=== PATIENT | male | born 1985 | race Two or more races ===

== ENCOUNTER 2020-01-08 00:19 | Inpatient (IN) | payer OTHER ==
[~2020-01-08] VITALS: Ht 177.8 cm; Wt 94.0 kg
[2020-01-08 00:20] VITALS: BP 121/77
--- NOTE | 2020-01-08 00:29 | Emergency Room Report ---
History of Present Illness General Chief Complaint: Pain Source: Patient Present Illness HPI This is a 35-year-old male with a history of lumbar radiculopathy secondary to herniated disc at the L5-S1 distribution. He had recent spinal surgery done today. He was [facility] to [facility]. He presents with chief complaint of back pain at the surgical site. Pain going down both thighs. No relief with Percocet at the [facility]. He was sent here for admission for pain control. Patient denies any fever chills but no nausea no vomiting. Unable to move because of the pain. Pain is 10 out of 10. Pain is sharp. Localized to the lower lumbar area from surgical site. No bleeding. Any movement makes it worse. Laying still made it better. Allergies: Coded Allergies: No Known Allergies (Unverified , 01/08/20) COVID-19 Screening Contact w/high risk pt: No Experienced COVID-19 symptoms?: No COVID-19 Testing performed CAPTAIN ASSISTANT: No Patient History Past Medical History: see triage record, old chart reviewed Past Surgical History: other Pertinent Family History: none Social History: Denies: smoking Immunizations: other Reviewed Nursing Documentation: PMH: Agreed; PSxH: Agreed Review of Systems Eye: Denies: eye pain, blurred vision ENT: Denies: ear pain, nose congestion, throat swelling Respiratory: Denies: cough, shortness of breath Cardiovascular: Denies: chest pain, palpitations Gastrointestinal: Denies: abdominal pain, diarrhea, nausea, vomiting Musculoskeletal: Reports: back pain; Denies: joint pain Skin: Denies: rash Neurological: Denies: headache, numbness Endocrine: Denies: increased thirst, increased urine Hematologic/Lymphatic: Denies: easy bruising All Other Systems: negative except mentioned in HPI Physical Exam Vital Signs Date Time Temp Pulse Resp B/P (MAP) Pulse Ox O2 Delivery O2 Flow Rate FiO2 01/08/20 00:20 98.2 100 22 118/73 (88) 99 Room Air Vitals normal Sp02 EP Interpretation: reviewed, normal General Appearance: well appearing, no apparent distress, alert Head: normocephalic, atraumatic Eyes: bilateral eye PERRL, bilateral eye EOMI ENT: hearing grossly normal, normal pharynx Neck: full range of motion, supple, no meningismus Respiratory: chest non-tender, lungs clear, normal breath sounds Cardiovascular #1: regular rate, rhythm, no murmur Gastrointestinal: normal bowel sounds, non tender, no mass, no organomegaly, no bruit, non-distended Musculoskeletal: normal range of motion, other - Dressing over surgical site. No active bleeding. Psychiatric: mood/affect normal Medical Decision Making Diagnostic Impression: Primary Impression: Post-operative pain Additional Impression: Leukocytosis Qualified Codes: D72.829 - Elevated white blood cell count, unspecified ER Course Patient with postoperative pain. Better after IV pain medication. Will admit for pain control. He may need a BARLEY STEEPER pump. I have discussed this case with Dr. Parrish prior to patient's arrival. CT/MRI/US Diagnostic Results CT/MRI/US Diagnostic Results : Imaging Test Ordered: CT lumbar spine Impression Read by radiologist. IMPRESSION: Posterior fusion of L5-S1. With repeated hardware appears intact and there is near-anatomic alignment. Gas in the spinal canal and posterior paraspinous soft tissues is likely postsurgical. No loculated fluid collection. Last Vital Signs Date Time Temp Pulse Resp B/P (MAP) Pulse Ox O2 Delivery O2 Flow Rate FiO2 01/08/20 00:20 98.2 100 22 118/73 (88) 99 Room Air Status: improved Disposition: ADMITTED INPATIENT Condition: Serious Matteo Jones MD Jan 08, 2020 00:29
[2020-01-08] MEDS ORDERED: Ketorolac 30mg Inj IV ONE (00:30)
[2020-01-08 00:55] LABS: HEMATOCRIT 46.7 % (42.0-52.0); HEMOGLOBIN 16.7 G/DL (14.2-18.0); MEAN CORPUSCULAR VOLUME 86 FL (80-99); PLATELET COUNT 153 K/UL (150-450); RED BLOOD COUNT 5.42 M/UL (4.70-6.10); RED CELL DISTRIBUTION WIDTH 11.6 % (11.6-14.8)
[2020-01-08 00:56] LABS: WHITE BLOOD COUNT 24.5 K/UL (4.8-10.8)
[2020-01-08 01:07] LABS: ANION GAP 17 mmol/L (5-15); BLOOD UREA NITROGEN 17 mg/dL (7-18); CARBON DIOXIDE 19 MMOL/L (21-32); CHLORIDE 101 MMOL/L (98-107); CREATININE 1.3 MG/DL (0.55-1.30); SODIUM 137 MMOL/L (136-145)
[2020-01-08 01:18] LABS: APPEARANCE,URINE CLEAR; COLOR,URINE PALE YELLOW
[2020-01-08 01:19] LABS: BILIRUBIN, URINE NEGATIVE (NEGATIVE); KETONES,URINE NEGATIVE (NEGATIVE); LEUKOCYTE ESTERASE ,URINE NEGATIVE (NEGATIVE); NITRITE,URINE NEGATIVE (NEGATIVE); PROTEIN,URINE 1+ (NEGATIVE); UROBILINOGEN,URINE NORMAL MG/DL (0.0-1.0)
[2020-01-08 01:21] LABS: GLUCOSE, URINE (UA) 2+ (NEGATIVE)
[2020-01-08] MEDS ORDERED: PERCOCET 10-321 EACH ORAL (01:33)
[2020-01-08 02:30] VITALS: BP 133/81
--- NOTE | 2020-01-08 02:33 | Diagnostic Imaging Report ---
EXAM: CT Lumbar Spine Without Intravenous Contrast CLINICAL HISTORY: This is a 35-year-old male with a history of lumbar radiculopathy secondary to herniated disc at the L5-S1 distribution. He had recent spinal surgery done today. He was discharged to group home. He presents with chief complaint of back pain at the surgical site. Pain going down both thighs. No relief with Percocet at the group home. He was sent here for admission for pain control. Patient denies any fever chills but no nausea no vomiting. Unable to move because of the pain. Pain is 10 out of 10. Pain is sharp. Localized to the lower lumbar area from surgical site. No bleeding. Any movement makes it worse. Laying still made it better. TECHNIQUE: Axial computed tomography images of the lumbar spine without intravenous contrast. CTDI is 13.5 mGy and DLP is 593.60 mGy-cm. One or more of the following dose reduction techniques were used: automated exposure control, adjustment of the mA and/or kV according to patient size, use of iterative reconstruction technique. COMPARISON: No relevant prior studies available. FINDINGS: Artifacts: Orthopedic hardware. Limitations: Lack of intravenous contrast. Vertebrae: No acute fracture. Sacrum/coccyx: Trace gas in the lower lumbar and upper sacral spinal canal. Discs/spinal canal/neural foramina: Posterior fusion of L5-S1 with pedicle screws and fusion rods. Orthopedic hardware appears intact and there is near-anatomic alignment. Soft tissues: Posterior paraspinous soft tissue gas and edema. No loculated fluid collection. Liver: Visualized liver is hypodense, suggesting steatosis. IMPRESSION: Posterior fusion of L5-S1. With repeated hardware appears intact and there is near-anatomic alignment. Gas in the spinal canal and posterior paraspinous soft tissues is likely postsurgical. No loculated fluid collection.
[2020-01-08 05:44] LABS: HEMATOCRIT 46.4 % (42.0-52.0); HEMOGLOBIN 15.9 G/DL (14.2-18.0); MEAN CORPUSCULAR VOLUME 89 FL (80-99); PLATELET COUNT 151 K/UL (150-450); RED BLOOD COUNT 5.24 M/UL (4.70-6.10); RED CELL DISTRIBUTION WIDTH 11.8 % (11.6-14.8); WHITE BLOOD COUNT 21.8 K/UL (4.8-10.8)
[2020-01-08] MEDS: Docusate 100mg cap ORAL SCH ×2 (09:00→17:59)
--- NOTE | 2020-01-08 09:33 | General Progress Note ---
Progress Note Progress Note Neurourgery POD#1 S/ pain better controlled no radiation of pain in the legs. Ambulated with PT. O/ Last 24 Hour Vital Signs Date Time Temp Pulse Resp B/P (MAP) Pulse Ox O2 Delivery O2 Flow Rate FiO2 01/08/20 08:00 98.4 89 19 96 01/08/20 06:02 97.3 01/08/20 04:00 97.3 72 18 95 01/08/20 03:07 Room Air 01/08/20 02:30 98.6 63 20 133/81 99 Room Air 01/08/20 02:30 98.6 63 20 133/81 99 Room Air 01/08/20 01:47 98.3 01/08/20 01:06 98.3 01/08/20 01:05 98.3 01/08/20 00:20 98.2 100 22 118/73 (88) 99 Room Air 01/08/20 00:20 98.4 72 20 121/77 99 Room Air Alert and oriented Moves all extremities lower extremities 5/5 sensory exam normal Dressing completely dry and intact Imaging I reviewed the post op CT personally. psot surgical changes at L5-S1 level with bilateral pedicle screws. Normal alignment. Hardware is in good position. No evidence of fluid collection or hematoma. labs Laboratory Tests Test 01/08/20 00:15 01/08/20 01:00 01/08/20 04:45 White Blood Count 24.5 K/UL (4.8-10.8) *H 21.8 K/UL (4.8-10.8) H Red Blood Count 5.42 M/UL (4.70-6.10) 5.24 M/UL (4.70-6.10) Hemoglobin 16.7 G/DL (14.2-18.0) 15.9 G/DL (14.2-18.0) Hematocrit 46.7 % (42.0-52.0) 46.4 % (42.0-52.0) Mean Corpuscular Volume 86 FL (80-99) 89 FL (80-99) Mean Corpuscular Hemoglobin 30.8 PG (27.0-31.0) 30.3 PG (27.0-31.0) Mean Corpuscular Hemoglobin Concent 35.7 G/DL (32.0-36.0) 34.2 G/DL (32.0-36.0) Red Cell Distribution Width 11.6 % (11.6-14.8) 11.8 % (11.6-14.8) Platelet Count 153 K/UL (150-450) 151 K/UL (150-450) Mean Platelet Volume 13.3 FL (6.5-10.1) H 12.3 FL (6.5-10.1) H Neutrophils (%) (Auto) % (45.0-75.0) % (45.0-75.0) Lymphocytes (%) (Auto) % (20.0-45.0) % (20.0-45.0) Monocytes (%) (Auto) % (1.0-10.0) % (1.0-10.0) Eosinophils (%) (Auto) % (0.0-3.0) % (0.0-3.0) Basophils (%) (Auto) % (0.0-2.0) % (0.0-2.0) Differential Total Cells Counted 100 100 Neutrophils % (Manual) 86 % (45-75) H 84 % (45-75) H Lymphocytes % (Manual) 9 % (20-45) L 10 % (20-45) L Monocytes % (Manual) 5 % (1-10) 6 % (1-10) Eosinophils % (Manual) 0 % (0-3) 0 % (0-3) Basophils % (Manual) 0 % (0-2) 0 % (0-2) Band Neutrophils 0 % (0-8) 0 % (0-8) Platelet Estimate Adequate Adequate Platelet Morphology Normal Normal Sodium Level 137 MMOL/L (136-145) Potassium Level 4.0 MMOL/L (3.5-5.1) Chloride Level 101 MMOL/L (98-107) Carbon Dioxide Level 19 MMOL/L (21-32) L Anion Gap 17 mmol/L (5-15) H Blood Urea Nitrogen 17 mg/dL (7-18) Creatinine 1.3 MG/DL (0.55-1.30) Estimat Glomerular Filtration Rate > 60 mL/min (>60) Glucose Level 157 MG/DL (74-106) H Calcium Level 9.0 MG/DL (8.5-10.1) Urine Color Pale yellow Urine Appearance Clear Urine pH 6.0 (4.5-8.0) Urine Specific Crockett 1.015 (1.005-1.035) Urine Protein 1+ (NEGATIVE) H Urine Glucose (UA) 2+ (NEGATIVE) H Urine Ketones Negative (NEGATIVE) Urine Blood 4+ (NEGATIVE) H Urine Nitrite Negative (NEGATIVE) Urine Bilirubin Negative (NEGATIVE) Urine Urobilinogen Normal MG/DL (0.0-1.0) Urine Leukocyte Esterase Negative (NEGATIVE) Urine RBC 40-60 /HPF (0 - 0) H Urine WBC 0-2 /HPF (0 - 0) Urine Squamous Epithelial Cells None /LPF (NONE/OCC) Urine Bacteria None /HPF (NONE) Red Blood Cell Morphology Normal Plan/ pain control ICE pack to incision site Soma Ambulate with lumbar brace Care plan discussed with nursing and Dr. Parrish. Mariel Espana MD Jan 08, 2020 09:33
[2020-01-08 16:02] VITALS: BP 114/60
[2020-01-08] MEDS: oxyCONTIN 10mg tab ORAL SCH (18:07)
[2020-01-08] MEDS: HYDROmorphone 1mg/ml Carpuject IVP PRN ×2 (19:39→22:44)
[2020-01-08 20:00] VITALS: BP 112/63
[2020-01-08] MEDS: Milk of Magnesia 30ml Ud ORAL PRN (20:55)
--- NOTE | 2020-01-08 22:59 | History and Physical Report ---
DATE OF ADMISSION: 01/08/2020 HISTORY OF PRESENT ILLNESS: Patient is well known to me. Patient is a 35-year-old male who is status post posterior lumbar decompression and fusion. Patient was sent to a rehab center. Subsequently had significant pain. he was on percocet for him, subsequently transferred to the ER at [facility], admitted to [facility]. Patient was transferred to the ER around 2 to 3 o'clock in the morning. He was subsequently transferred to the floor. PAST MEDICAL HISTORY: None. PAST SURGICAL HISTORY: Includes microdiskectomy and then he had lumbar fusion. MEDICATIONS: He was on ibuprofen until a couple of days prior to surgery, but has been held. ALLERGIES: No known drug allergies. PHYSICAL EXAMINATION: VITAL SIGNS: Vital signs were obtained on the patient and were reviewed. HEENT: Normocephalic and atraumatic. Extraocular muscles intact. HEART: S1 and S2. LUNGS: Clear. ABDOMEN: Soft. SKIN: Wound has bandage and there is no drainage. LABORATORY DATA: Obtained which shows white blood cell count 24.5. Hemoglobin 16.7 and platelets 153. Subsequent to that, this morning, the white blood cell count was reviewed. Slightly lower to 21.8. Patient had no fever. BMP is otherwise unremarkable. UA had some glucose and RBC. IMPRESSION: Status post spinal fusion. Postoperative pain. Stress leukocytosis. The following will be done. Monitor patient off antibiotics. Deep vein thrombosis prophylaxis with sequential compression stockings. PT/OT to evaluate this patient. Pain control with Dilaudid and Percocet intermittently. Consideration of adding a muscle relaxant. Spine to see the patient and case was discussed with Spine. Juan J Parrish M.D. DR: CHANG JOB#: [id number] CC: Mariel Espana M.D.; Fax#: [phone] [facility]
[2020-01-09] VITALS: BP 115/71
[2020-01-09] MEDS: oxyCONTIN 10mg tab ORAL SCH ×4 (01:14→22:32)
[2020-01-09] MEDS: HYDROmorphone 1mg/ml Carpuject IVP PRN ×3 (02:33→08:47)
[2020-01-09 04:00] VITALS: BP 118/70
[2020-01-09 05:39] LABS: BASOPHILS % (AUTO) 0.5 % (0.0-2.0); HEMATOCRIT 46.5 % (42.0-52.0); HEMOGLOBIN 15.7 G/DL (14.2-18.0); LYMPHOCYTES % (AUTO) 15.9 % (20.0-45.0); MEAN CORPUSCULAR VOLUME 89 FL (80-99); MONOCYTES % (AUTO) 10.1 % (1.0-10.0); NEUTROPHILS % (AUTO) 73.5 % (45.0-75.0); PLATELET COUNT 128 K/UL (150-450); RED BLOOD COUNT 5.21 M/UL (4.70-6.10); RED CELL DISTRIBUTION WIDTH 12.1 % (11.6-14.8); WHITE BLOOD COUNT 17.4 K/UL (4.8-10.8)
[2020-01-09 08:00] VITALS: BP 118/72
[2020-01-09] MEDS: Docusate 100mg cap ORAL SCH ×2 (08:47→17:04)
--- NOTE | 2020-01-09 09:08 | General Progress Note ---
Assessment/Plan Status Narrative s/p lumbar spien fusion stress leukocytosis WBC is coming down had decadron before surgery Assessment/Plan: Pt Ot dvt prophyalxis paincontrol dc planning will dc ivf give mom Subjective Date patient seen: Jan 09, 2020 Time patient seen: 09:06 Allergies: Coded Allergies: No Known Allergies (Unverified , 01/08/20) Subjective has pain no bm no feverno chills Objective Last 24 Hour Vital Signs Date Time Temp Pulse Resp B/P (MAP) Pulse Ox O2 Delivery O2 Flow Rate FiO2 01/09/20 08:00 98.8 105 18 118/72 (87) 95 01/09/20 04:00 99.5 104 16 118/70 (86) 95 01/09/20 00:00 99.5 110 16 115/71 (86) 96 01/08/20 21:00 Room Air 01/08/20 20:55 100 16 96 01/08/20 20:00 99.0 117 16 112/63 (79) 95 01/08/20 18:37 97.7 01/08/20 16:02 97.7 98 20 114/60 (78) 95 01/08/20 13:27 98.1 01/08/20 12:00 98.1 77 21 96 Intake and Output 01/08/20 01/09/20 19:00 07:00 Intake Total 1090 ml 1100 ml Output Total 1200 ml 1650 ml Balance -110 ml -550 ml Intake Oral 1090 ml 500 ml IV Total 600 ml Output Urine Total 1200 ml 1650 ml # Voids 4 5 Laboratory Tests 01/09/20 04:45: White Blood Count 17.4H, Red Blood Count 5.21, Hemoglobin 15.7, Hematocrit 46.5 , Mean Corpuscular Volume 89, Mean Corpuscular Hemoglobin 30.1, Mean Corpuscular Hemoglobin Concent 33.8, Red Cell Distribution Width 12.1, Platelet Count 128L, Mean Platelet Volume 12.4H, Neutrophils (%) (Auto) 73.5, Lymphocytes (%) (Auto) 15.9L, Monocytes (%) (Auto) 10.1H, Eosinophils (%) (Auto ) 0.0, Basophils (%) (Auto) 0.5 Height (Feet): 5 Height (Inches): 10.00 Weight (Pounds): 207 General Appearance: WD/WN Cardiovascular: normal rate, regular rhythm, no JVD Respiratory/Chest: lungs clear Abdomen: soft Juan J Parrish MD Jan 09, 2020 09:08
--- NOTE | 2020-01-09 09:16 | General Progress Note ---
Progress Note Progress Note Neurosurgery S Incisional pain no radiating pain. Ambulated this passing gas. no BM O vs: Last 24 Hour Vital Signs Date Time Temp Pulse Resp B/P (MAP) Pulse Ox O2 Delivery O2 Flow Rate FiO2 01/09/20 08:00 98.8 105 18 118/72 (87) 95 01/09/20 04:00 99.5 104 16 118/70 (86) 95 01/09/20 00:00 99.5 110 16 115/71 (86) 96 01/08/20 21:00 Room Air 01/08/20 20:55 100 16 96 01/08/20 20:00 99.0 117 16 112/63 (79) 95 01/08/20 18:37 97.7 01/08/20 16:02 97.7 98 20 114/60 (78) 95 01/08/20 13:27 98.1 01/08/20 12:00 98.1 77 21 96 Alert and orented Moves all extremities well Normal sensation Incision dressing completely dry and intact Laboratory Tests Test 01/09/20 04:45 White Blood Count 17.4 K/UL (4.8-10.8) H Red Blood Count 5.21 M/UL (4.70-6.10) Hemoglobin 15.7 G/DL (14.2-18.0) Hematocrit 46.5 % (42.0-52.0) Mean Corpuscular Volume 89 FL (80-99) Mean Corpuscular Hemoglobin 30.1 PG (27.0-31.0) Mean Corpuscular Hemoglobin Concent 33.8 G/DL (32.0-36.0) Red Cell Distribution Width 12.1 % (11.6-14.8) Platelet Count 128 K/UL (150-450) L Mean Platelet Volume 12.4 FL (6.5-10.1) H Neutrophils (%) (Auto) 73.5 % (45.0-75.0) Lymphocytes (%) (Auto) 15.9 % (20.0-45.0) L Monocytes (%) (Auto) 10.1 % (1.0-10.0) H Eosinophils (%) (Auto) 0.0 % (0.0-3.0) Basophils (%) (Auto) 0.5 % (0.0-2.0) sp lumbar fusion incisional pain switch to OxyContin 30 Q8 and Percocet 10 for breakthrough pain Bowel care PT Lumbar brace at bed side. Mariel Espana MD Jan 09, 2020 09:16
[2020-01-09] MEDS ORDERED: oxyCONTIN 10mg tab ORAL SCH (10:00)
[2020-01-09] MEDS ORDERED: Milk of Magnesia 30ml Ud ORAL SCH (10:00)
[2020-01-09 12:00] VITALS: BP 123/76
[2020-01-09] MEDS ORDERED: IBUPROFEN600 M1 ORAL (13:48)
[2020-01-09] MEDS: Metamucil Pkt ORAL SCH ×2 (13:57→17:04)
[2020-01-09] MEDS ORDERED: oxyCONTIN 20mg tab ORAL SCH (14:00)
[2020-01-09 16:00] VITALS: BP 108/68
[2020-01-09 20:00] VITALS: BP 108/67
[2020-01-09] MEDS: Milk of Magnesia 30ml Ud ORAL PRN (20:09)
[2020-01-10] VITALS: BP 117/67
[2020-01-10 03:31] VITALS: BP 116/63
[2020-01-10] MEDS: oxyCONTIN 10mg tab ORAL SCH ×2 (06:12→13:53)
[2020-01-10 07:07] LABS: BASOPHILS % (AUTO) 0.8 % (0.0-2.0); EOSINOPHILS % (AUTO) 0.1 % (0.0-3.0); HEMATOCRIT 45.5 % (42.0-52.0); HEMOGLOBIN 15.4 G/DL (14.2-18.0); LYMPHOCYTES % (AUTO) 10.7 % (20.0-45.0); MEAN CORPUSCULAR VOLUME 88 FL (80-99); MONOCYTES % (AUTO) 7.9 % (1.0-10.0); NEUTROPHILS % (AUTO) 80.4 % (45.0-75.0); PLATELET COUNT 131 K/UL (150-450); RED BLOOD COUNT 5.16 M/UL (4.70-6.10); RED CELL DISTRIBUTION WIDTH 11.5 % (11.6-14.8); WHITE BLOOD COUNT 14.9 K/UL (4.8-10.8)
[2020-01-10 08:00] VITALS: BP 106/75
[2020-01-10] MEDS: Metamucil Pkt ORAL SCH ×3 (08:34→17:49)
[2020-01-10] MEDS: Milk of Magnesia 30ml Ud ORAL PRN (08:34)
[2020-01-10] MEDS: Docusate 100mg cap ORAL SCH ×2 (08:34→17:49)
[2020-01-10 12:00] VITALS: BP 143/66
[2020-01-10 16:00] VITALS: BP 112/70
--- NOTE | 2020-01-10 16:55 | General Progress Note ---
Progress Note Progress Note Neurosurgery S/ Feeling much better. Had BM. Ambulated several times. No leg pain O/ Vs: Last 24 Hour Vital Signs Date Time Temp Pulse Resp B/P (MAP) Pulse Ox O2 Delivery O2 Flow Rate FiO2 01/10/20 14:23 98.2 01/10/20 12:00 98.6 100 20 143/66 (91) 99 01/10/20 09:00 Room Air 01/10/20 08:00 98.2 94 20 106/75 (85) 99 01/10/20 03:31 98.1 101 18 116/63 (80) 96 01/10/20 00:00 99.4 97 16 117/67 (84) 95 01/09/20 21:00 Room Air 01/09/20 20:00 98.7 97 16 108/67 (81) 95 Alert and oriented x 4. In good spirits 5/5 strength in the upper and lowers normal sensation dressing completely dry paralumbar muscles supple. Normal sensation doing well continue lumbar brace D/c planning d/c instructions reviewed with pt and nursing Mariel Espana MD Jan 10, 2020 16:55
--- NOTE | 2020-01-10 23:45 | Discharge Summary ---
DATE OF ADMISSION: 01/08/2020 DATE OF DISCHARGE: 01/10/2020 DISCHARGE DIAGNOSES: Status post lumbar fusion and stabilization. POSTOPERATIVE CARE/HISTORY OF PRESENT ILLNESS: The patient is a pleasant 35-year-old gentleman with a history of traumatic injury to the lumbar spine. He underwent a successful lumbar fusion and stabilization in the outpatient setting. He was transported to a [facility] facility. His pain was not control adequately. He was transferred to [facility] for postoperative care and pain control. He had a CT scan which showed no evidence of complications with excellent placement of the hardware. The patient's postoperative pain was controlled with IV medications first and he was switched to oral pain medications. His pain has been extremely well controlled today. He has ambulated several times. He is being discharged home with appropriate instructions. DISPOSITION: Home. DIET: Regular, high-fiber. MEDICATIONS: Percocet and Colace. Consults included physical therapy and internal medicine, Dr. Juan J Parrish. DISPOSITION: Home. COMPLICATIONS: None. DISCHARGE INSTRUCTIONS: The patient and nursing were instructed regarding discharge instructions. The patient may shower tomorrow with removal of the top dressing of the lumbar spine. Diet will be high fiber. The patient is to use his lumbar brace when out of bed and ambulating. In case of fever, chills, drainage from the incision, the patient is to call Dr. Espana directly. He was provided Dr. Espana's cell phone . Follow up with Dr. Espana in approximately 1 week. Mariel Espana M.D. DR: ALEC JOB#: [id number] CC:
== END 2020-01-10 18:30 | disposition home or self-care (01) | DRG 948 ==
LOC: EDBD 00:19 → EMR 00:51 → EDBEDREQ 01:10 → 3E 01:14
DX: G89.18 Other acute postprocedural pain (principal); Z98.1 Arthrodesis status
CPT/HCPCS: 36415; 72131; 80048; 81001; 85007; 85025; 87081; 96361; 96374; 96375; 96376; 99285; J2405; J7030